=== PATIENT | female | born 1965 | race Hispanic/Latino ===

== ENCOUNTER → 2021-02-12 | Outpatient (CLI) | payer OTHER | END | disposition home or self-care (01) | LOC: OIH 14:43 | PROVIDERS: ATTEND Internal Medicine | DX: M77.51 Other enthesopathy of right foot and ankle (principal); M79.671 Pain in right foot | CPT/HCPCS: 73620 ==

== ENCOUNTER → 2023-11-18 | Outpatient (CLI) | payer OTHER | END | disposition home or self-care (01) | LOC: OIH 11-11 12:12 | PROVIDERS: ATTEND Internal Medicine | DX: M19.071 Primary osteoarthritis, right ankle and foot (principal); M77.31 Calcaneal spur, right foot; M17.12 Unilateral primary osteoarthritis, left knee; M17.10 Unilateral primary osteoarthritis, unspecified knee; M79.674 Pain in right toe(s); M79.89 Other specified soft tissue disorders | CPT/HCPCS: 73560; 73620 ==